=== PATIENT | male | born 1990 ===

== ENCOUNTER 2023-12-21 18:17 | Emergency (ER) | payer BC ==
[2023-12-21 19:07] LABS: BASOPHILS ABSOLUTE AUTO 0.1 K/mm3 (0.0-0.2); EOSINOPHILS ABSOLUTE AUTO 0.2 K/mm3 (0.0-0.4); EOSINOPHILS PERCENT AUTO 2.3 % (0.0-6.0); HEMATOCRIT 41.7 % (42.0-52.0); HEMOGLOBIN 14.9 gm/dl (14.0-18.0); IMMATURE GRAN ABSOLUTE AUTO 0.02 K/mm3 (0.00-0.05); IMMATURE GRAN PERCENT AUTO 0.2 % (0.0-0.4); LYMPHOCYTES ABSOLUTE AUTO 2.2 K/mm3 (1.0-4.8); LYMPHOCYTES PERCENT AUTO 26.1 % (24.0-44.0); MEAN CORPUSCULAR HEMOGLOBIN 30.5 pg (28.0-32.0); MEAN CORPUSCULAR HGB CONC 35.7 g/dl (32.0-36.0); MEAN CORPUSCULAR VOLUME 85.5 fl (83.0-99.0); MEAN PLATELET VOLUME 9.3 fl (9.4-12.4); MONOCYTES ABSOLUTE AUTO 0.5 K/mm3 (0.0-0.8); MONOCYTES PERCENT AUTO 6.2 % (0.0-8.0); NEUTROPHILS ABSOLUTE AUTO 5.3 K/mm3 (1.8-7.7); NEUTROPHILS PERCENT AUTO 64.2 % (41.0-71.0); PLATELET COUNT,PLT 333 K/mm3 (150-400); RED BLOOD CELL COUNT 4.88 M/mm3 (4.52-5.90); WHITE BLOOD CELL COUNT,WBC 8.23 K/mm3 (3.9-11.3)
[2023-12-21] MEDS: Sodium Chloride 0.9% 1,000 ML IV ONE ×2 (19:12→20:25)
[2023-12-21 19:31] LABS: A/G RATIO 1.3 (1-2); ALANINE AMINOTRANSFERASE,ALT 38 U/L (16-63); ALKALINE PHOSPHATASE 130 U/L (46-116); ANION GAP 18.7 (5-15); BILIRUBIN TOTAL 0.4 mg/dL (0.2-1.0); BLOOD UREA NITROGEN,BUN 15 mg/dL (7-18); BUN/CREATININE RATIO 13.6 (14-18); CARBON DIOXIDE,CO2 22 mEq/L (21-32); CHLORIDE,CL 96 mEq/L (98-107); CREATININE 1.1 mg/dL (0.7-1.3); EST CRCL DRUG DOSING (CG) 94.62 mL/min; ESTIMATED GFR 90 mL/min (>60); PROTEIN TOTAL,TP 7.2 g/dl (6.4-8.2); SODIUM,NA 133 mEq/L (136-145)
[2023-12-21 19:46] LABS: GLUCOSE RANDOM 484 mg/dL (70-99)
[2023-12-21 19:47] LABS: POTASSIUM,K 3.7 mEq/L (3.5-5.1)
[2023-12-21 20:03] LABS: APPEARANCE,URINE CLEAR (Clear); BILIRUBIN,URINE NEGATIVE (Negative); COLOR,URINE YELLOW (Yellow); GLUCOSE,URINE 2+ (Negative); KETONES,URINE TRACE (Negative); LEUKOCYTE ESTERASE,URINE NEGATIVE (Negative); NITRITE,URINE NEGATIVE (Negative); OCCULT BLOOD,URINE NEGATIVE (Negative); PH,URINE 6.5 (5.0-8.0); PROTEIN,URINE NEGATIVE (Negative); UROBILINOGEN,URINE 0.2 (0.2-1.0)
[2023-12-21 20:10] LABS: OSMOLALITY,SERUM 303 mosm/kg (280-300)
[2023-12-21] MEDS: Sodium Chloride 0.45% with KCl 1,000 ML IV ONE (20:44)
[2023-12-21 21:20] LABS: BASE EXCESS VENOUS -1.7 (-4.0-2.0); BICARBONATE,VENOUS 22.7 meq/L (22-26); O2 SATURATION VENOUS 90.8; PCO2 VENOUS 39.5 mmHg (41-51); PH,VENOUS 7.38 (7.30-7.40)
[2023-12-21 21:21] LABS: HEMOGLOBIN A1C 11.2 %
[2023-12-21 22:28] LABS: ANION GAP 12.7 (5-15); BUN/CREATININE RATIO 12.2 (14-18); CALCIUM 8.3 mg/dL (8.5-10.1); CREATININE 0.9 mg/dL (0.7-1.3); EST CRCL DRUG DOSING (CG) 115.65 mL/min; POTASSIUM,K 3.7 mEq/L (3.5-5.1)
[2023-12-22] MEDS: Sodium Chloride 0.9% 1,000 ML IV ONE (00:45)
[2023-12-22 05:25] LABS: ANION GAP 12.2 (5-15); CALCIUM 8.4 mg/dL (8.5-10.1); EST CRCL DRUG DOSING (CG) 104.09 mL/min; POTASSIUM,K 4.2 mEq/L (3.5-5.1)
[2023-12-22] MEDS ORDERED: Insulin Regular, Human 100 Units/ML 3 ML Vial SUBCUT ONE (09:18)
[2023-12-22] MEDS: Insulin Regular, Human 100 Units/ML 10 ML Vial SUBCUT ONE (09:34)
[2023-12-22] MEDS: metFORMIN 500 MG Tab PO ONE (09:36)
== END 2023-12-22 10:55 | disposition home or self-care (01) ==
LOC: JD.ED 18:17
DX: E11.65 Type 2 diabetes mellitus with hyperglycemia (principal)
CPT/HCPCS: 36415; 80048; 80053; 81003; 82803; 82947; 83036; 83605; 83930; 85025; 93005; 96361; 96365; 96366; 99285; A9270; J1815; J3480; J7030; 93010; 99284